=== PATIENT | female | born 1940 | race African-American/Black ===

== ENCOUNTER → 2017-03-04 | Outpatient (CLI) | payer OTHER ==
[~2017-03-04] VITALS: Ht 175.3 cm; Wt 77.1 kg
[~2017-03-04] MED LIST: ASPIRIN EC325 MG PO; ATORVASTATIN CA40 MG PO; CARVEDILOL12.5 MG PO; CINNAMON500 MG PO; CIPROFLOXACIN500 M1 PO; COZAAR 50 MG TA50 M2 PO; EFFIENT10 MG PO; FLAX OIL1000 MG PO; GARLIC500 MG PO; GLUCOSAMINE HC500 M1 PO; IMDUR 30 MG TAB30 M1 PO; LOSARTAN-HCTZ1 EAC1 PO; METFORMIN HCL500 MG PO; NORCO 5-325 TA1 EACH PO; SENNA PO; TOPROL XL25 MG PO
--- NOTE | ~2017-03-04 | S ---
[facility] [place] [address] SURGICAL PATH RPT PROCEDURE Name: CLARICE TIPTON Room #: REG [facility].#: [id number] Admission: 03/04/17 Date of : 44 Discharge: Report #: [id number] Path Case #: [id number] PATHOLOGY REPORT COLLECTION DATE: 03/04/2017 RECEIVED DATE: 03/04/2017 SUBMITTING PHYS: Dr. Sean Mejia OTHER PHYS: Dr. Kisha Hobson SPECIMEN(S) RECEIVED: A.Cecal polyp B.Sigmoid polyp * * * * * * * * * * * * FINAL DIAGNOSIS: A. Colonic mucosa, "cecal polyp biopsy": - Tubular adenoma. - There is no evidence of high-grade dysplasia or malignancy. B. Colonic mucosa, "sigmoid polyp biopsy": - Tubular adenoma. - There is no evidence of high-grade dysplasia or malignancy. (SHA:; 03/05/2017) PATHOLOGIST: Hitesh Paez M.D. REPORT ELECTRONICALLY SIGNED BY: Hitesh Paez M.D. DATE/TIME: 03/05/2017 13:06 * * * * * * * * * * * * GROSS PATHOLOGY: A. Received in formalin labeled "Clarcie Tiptno, BX of cecal polyp," is a segment of carvajal soft tissue measuring 0.5 cm in maximum dimension. The specimen is submitted entirely in cassette A1. B. Received in formalin labeled "Clarice Tipton, BX of sigmoid polyp," is a segment of carvajal soft tissue measuring 0.3 cm in maximum dimension. The specimen is submitted entirely in cassette B1. (TSD; 03/04/2017) CLINICAL HISTORY: Pre-OP DX: History of polyps Post-OP DX: Colon polyps INITIAL CPT CODE(S): A; 45710 B; 18990 [facility] [address] [place] [address] SURGICAL PATH RPT PROCEDURE Name: CLARICE TIPTON IQRA Room #: REG YAYA Peralta#: [id number] Admission: 03/04/17 Date of : 44 Discharge: Report #: [id number] Path Case #: [id number] [address] [place] [address] [facility] at [address] [place] [address], [facility] [address] [address]. [facility] [address] [place] [address] PHONE: [phone] DIRECTOR: Rupesh Chambers M.D. * * * END OF REPORT * * *
--- NOTE | ~2017-03-04 | P ---
[facility] [place] [address] PROCEDURE REPORT Name: CLARICE TIPTON Room #: REG [facility].#: [id number] Admission: 03/04/17 Attend Phys: Sean Jaimes Discharge: Date of : 44 Report #: [id number] THIS REPORT FOR: //name// CC: Sean Hobson MD DATE OF SERVICE: 03/04/2017 PROCEDURE PERFORMED: Colonoscopy with biopsies. HISTORY OF PRESENT ILLNESS: The patient is a 76-year-old female reportedly with a history of polyps 5 years ago at a different location. No family history of colon cancer. PROCEDURE: The risks and benefits of the procedure were explained to the patient, those risks including, but not limited to bleeding, perforation, and the risk of sedation. She understood these risks and gave informed consent. Sedation was given using propofol per anesthesia. Next, a digital rectal exam was initially performed, which was normal. Next, using a Fujinon colonoscope, the scope was placed in the patient's anus and advanced under direct vision to the cecum. The overall prep was excellent. In the cecum, there were 2 polyps, they ranged from 3-4 mm, both were removed with cold forceps, otherwise normal. Ileocecal valve was normal. A few diverticula were noted in the proximal ascending colon, no evidence of inflammation, otherwise normal. The transverse and descending colon were normal. Multiple diverticula were noted in the sigmoid colon, no evidence of inflammation, also noted there was a 4-mm sessile polyp, this was removed with cold forceps. The rectal mucosa was normal. On retroflexion, no abnormalities were noted. The scope was then withdrawn and the procedure terminated. The patient tolerated the procedure well. IMPRESSION: 1. Three small colonic polyps as described above. 2. Diverticulosis in the ascending and sigmoid colon. 3. Otherwise, normal colonoscopy. RECOMMENDATIONS: 1. Await biopsy results. 2. If polyps are hyperplastic, consider repeat colonoscopy in 10 years; if adenomatous polyps, repeat colonoscopy in [address] [address] PROCEDURE REPORT Name: CLARICE TIPTON Room #: REG Saul Peralta#: [id number] Admission: 03/04/17 Attend Phys: Sean Jaimes Discharge: Date of : 44 Report #: [id number] Thank you for allowing me to participate in her care. By: [id number] Sean Mejia MD /nt
== END | disposition home or self-care (01) ==
LOC: GI 07:30
DX: Z09 Encounter for follow-up examination after completed treatment for conditions other than malignant neoplasm (principal); Z86.010 Personal history of colon polyps; D12.0 Benign neoplasm of cecum; D12.5 Benign neoplasm of sigmoid colon; K57.30 Diverticulosis of large intestine without perforation or abscess without bleeding; I10 Essential (primary) hypertension; E11.9 Type 2 diabetes mellitus without complications; E78.5 Hyperlipidemia, unspecified; I73.89 Other specified peripheral vascular diseases; Z90.710 Acquired absence of both cervix and uterus; Z95.5 Presence of coronary angioplasty implant and graft; Z98.41 Cataract extraction status, right eye; Z98.42 Cataract extraction status, left eye; Z96.1 Presence of intraocular lens; Z98.890 Other specified postprocedural states; Z79.899 Other long term (current) drug therapy; Z88.8 Allergy status to other drugs, medicaments and biological substances; Z79.82 Long term (current) use of aspirin
CPT/HCPCS: 62110; 62900

== ENCOUNTER → 2017-09-22 | Outpatient (CLI) | payer OTHER | LOC: NUC 09-01 07:02 | DX: M85.89 Other specified disorders of bone density and structure, multiple sites (principal); M81.0 Age-related osteoporosis without current pathological fracture; Z78.0 Asymptomatic menopausal state ==